=== PATIENT | male | born 1950 | race Hispanic/Latino ===

== ENCOUNTER 2018-10-23 18:53 | Emergency (ER) | payer MEDICARE ==
[~2018-10-23] VITALS: Ht 162.6 cm; Wt 59.0 kg
--- NOTE | 2018-10-23 19:53 | NUR ---
TAMARA TAPED 3RD AND 4TH TOES, ORTHO SHOE APPLIED, TOLERATED WELL. CALLED [facility] FOR TRANSPORT BACK TO NURSING FACILITY
--- NOTE | 2018-10-23 20:09 | NUR ---
ATTEMPTED TO CALL REPORT TO [facility] ([facility]), NO ANSWER
== END 2018-10-23 20:50 ==
LOC: ER 18:53
DX: S92.912A Unspecified fracture of left toe(s), initial encounter for closed fracture (principal); W18.2XXA Fall in (into) shower or empty bathtub, initial encounter; Y93.89 Activity, other specified; I48.91 Unspecified atrial fibrillation; I25.10 Atherosclerotic heart disease of native coronary artery without angina pectoris; I10 Essential (primary) hypertension
CPT/HCPCS: 99283